=== PATIENT | female | born 1960 | race Caucasian/White ===

== ENCOUNTER 2017-05-05 16:35 | Emergency (ER) | payer OTHER ==
[~2017-05-05] VITALS: Ht 167.6 cm; Wt 76.7 kg
[~2017-05-05 16:35] MED LIST: ABILIFY 5 MG TAB5 M1 PO; BIOTIN1 MG PO; CLONAZEPAM 1 MG1 M1 PO; CLONIDINE HCL0.2 M2 PO; CYMBALTA60 MG PO; ESTRACE1 MG PO; HYDROCODON-ACE1 EAC8 PO; IBUPROFEN200 M2 PO; LIMBREL 500 MG500 MG PO; MOBIC7.5 MG PO; OMEPRAZOLE 20 M20 M1 PO; PROTONIX40 M2 PO; SUPRAX400 MG PO
[2017-05-05] MEDS ORDERED: NAPROSYN500 MG PO (17:46)
[2017-05-05] MEDS ORDERED: HYDROCODONE-AP1 EAC6 PO (17:46)
== END 2017-05-05 18:00 | disposition home or self-care (01) ==
LOC: ER 16:35
DX: S83.8X1A Sprain of other specified parts of right knee, initial encounter (principal); F17.210 Nicotine dependence, cigarettes, uncomplicated; Z85.828 Personal history of other malignant neoplasm of skin; Z88.8 Allergy status to other drugs, medicaments and biological substances; Z88.2 Allergy status to sulfonamides; W18.39XA Other fall on same level, initial encounter; Y93.89 Activity, other specified; Y92.89 Other specified places as the place of occurrence of the external cause; Y99.8 Other external cause status